=== PATIENT | male | born 2000 | race Caucasian/White ===

== ENCOUNTER 2018-03-27 22:22 | Emergency (ER) | payer MEDICAID ==
[2018-03-27 22:36] VITALS: BP 122/58
[2018-03-27] MEDS ORDERED: IBUPROFEN 800 MG TABLET PO ONE (23:53)
--- NOTE | 2018-03-28 00:01 | ER Document Report ---
ED Extremity Problem, Lower - General Mode of Arrival: Ambulatory Information source: Patient TRAVEL OUTSIDE OF THE [place] IN LAST 30 DAYS: No <BONI CULVER - Last Filed: 03/27/18 23:55> <YANNA TIDWELL - Last Filed: 03/28/18 00:25> - General Chief Complaint: Knee Pain Stated Complaint: KNEE PAIN Time Seen by Provider: 03/27/18 23:48 Notes: 17-year-old male who presents to the emergency department today with complaints of left knee pain. Patient states he tripped earlier today which is what caused this pain. Patient mentions that he is homeless. Patient states he was living with his sister in [place] but she kicked him out. (BONI CULVER) Past Medical History - General Information source: Patient - Social History Smoking Status: Never Smoker Cigarette use (# per day): No Lives with: Homeless - Medical History Medical History: Negative Surgical Hx: Negative <BONI CULVER - Last Filed: 03/27/18 23:55> - Social History Family History: Reviewed & Not Pertinent <YANNA TIDWELL - Last Filed: 03/28/18 00:25> Review of Systems - Review of Systems Constitutional: No symptoms reported EENT: No symptoms reported Cardiovascular: No symptoms reported Respiratory: No symptoms reported Gastrointestinal: No symptoms reported Genitourinary: No symptoms reported Male Genitourinary: No symptoms reported Musculoskeletal: See HPI, Joint pain - left knee pain Skin: No symptoms reported Hematologic/Lymphatic: No symptoms reported Neurological/Psychological: No symptoms reported -: Yes All other systems reviewed and negative <BONI CUVLER - Last Filed: 03/27/18 23:55> Physical Exam - Vital signs Interpretation: Normal - General General appearance: Appears well, Alert - HEENT Head: Normocephalic, Atraumatic Eyes: Normal Pupils: PERRL - Respiratory Respiratory status: No respiratory distress Chest status: Nontender Breath sounds: Normal Chest palpation: Normal - Cardiovascular Rhythm: Regular Heart sounds: Normal auscultation Murmur: No - Abdominal Inspection: Normal Distension: No distension Bowel sounds: Normal Tenderness: Nontender Organomegaly: No organomegaly - Back Back: Normal, Nontender - Extremities General upper extremity: Normal inspection, Nontender, Normal color, Normal ROM , Normal temperature General lower extremity: Normal inspection, Normal color, Normal temperature, Normal weight bearing. No: Lorrie's sign Hip: Normal Thigh: Normal Knee: Tender, Joint effusion - Mild, Pain with ROM - Pain with flexion. No: Deformity, Dislocation, Instability Calf: Normal Ankle: Normal Foot: Normal - Neurological Neuro grossly intact: Yes Cognition: Normal Orientation: AAOx4 Manito Coma Scale Eye Opening: Spontaneous Manito Coma Scale Verbal: Oriented Manito Coma Scale Motor: Obeys Commands Manito Coma Scale Total: 15 Speech: Normal Motor strength normal: LUE, RUE, LLE, RLE Sensory: Normal - Psychological Associated symptoms: Normal affect, Normal mood - Skin Skin Temperature: Warm Skin Moisture: Dry Skin Color: Normal <YANNA TIDWELL - Last Filed: 03/28/18 00:25> - Vital signs Vitals: Temp Pulse Resp BP Pulse Ox 98.6 F 81 18 122/58 L 98 03/27/18 22:33 03/27/18 22:03/27/18 22:03/27/18 22:33 03/27/18 22:33 Course <BONI CULVER - Last Filed: 03/27/18 23:55> - Diagnostic Test Radiology reviewed: Image reviewed <YANNA TIDWELL - Last Filed: 03/28/18 00:25> - Re-evaluation Re-evalutation: 03/28/18 00:22 Patient is a 17-year-old male who comes in complaining of knee pain. He apparently fell on his knee. Patient is currently homeless. No other injuries. No acute findings on x-ray. He will be given an Natanael wrap and is to follow-up with a doctor when he is able to do so. Social work consult has been placed to assess for needs. Stable for discharge (YANNA TIDWELL) - Vital Signs Vital signs: Temp Pulse Resp BP Pulse Ox 98.6 F 81 18 122/58 L 98 03/27/18 22:33 03/27/18 22:33 03/27/18 22:33 03/27/18 22:33 03/27/18 22:33 Discharge <BONI CULVER - Last Filed: 03/27/18 23:55> <YANNA TIDWELL - Last Filed: 03/28/18 00:25> - Discharge Clinical Impression: Left knee sprain Qualifiers: Encounter type: initial encounter Involved ligament of knee: unspecified ligament Qualified Code(s): S83.92XA - Sprain of unspecified site of left knee, initial encounter Condition: Stable Disposition: HOME, SELF-CARE Instructions: Sprained Knee ([facility]), Ice & Elevation ([facility]), Use of Crutches ([facility]) Scribe Attestation: 03/28/18 00:23 I personally performed the services described in the documentation, reviewed and edited the documentation which was dictated to the scribe in my presence, and it accurately records my words and actions. (YANNA TIDWELL) Scribe Documentation - Scribe Written by Dorie:: Dorie Paredes, 03/28/2018 0000 acting as scribe for :: Shirin <BONI CULVER - Last Filed: 03/27/18 23:55>
--- NOTE | 2018-03-28 00:23 | RADIOLOGY REPORT (SQ) ---
EXAM DESCRIPTION: XR KNEE 4 OR MORE VIEWS COMPLETED DATE/TME: 03/27/2018 23:53 CLINICAL HISTORY: 17 years, Male, fall, pain COMPARISON: None. NUMBER OF VIEWS: Three TECHNIQUE: Three views of the left knee were done LIMITATIONS: None. FINDINGS: There is no fracture or dislocation involving the left knee joint. There is no suprapatellar joint effusion. The joint spaces are well-maintained IMPRESSION: Negative for acute bony trauma involving the left knee 2010 [employer]- All Rights Reserved
== END 2018-03-28 00:56 | disposition home or self-care (01) ==
LOC: ER 22:22
DX: S83.92XA Sprain of unspecified site of left knee, initial encounter (principal); M25.562 Pain in left knee; W19.XXXA Unspecified fall, initial encounter; Z59.0 Homelessness
CPT/HCPCS: 99284; 73564; J3490

== ENCOUNTER 2018-03-28 08:55 | Emergency (ER) | payer MEDICAID ==
--- NOTE | 2018-03-28 09:57 | ER Document Report ---
ED Fall - General Chief Complaint: Fall Stated Complaint: FALL/RIB PAIN Time Seen by Provider: 03/28/18 09:56 Notes: The patient is a 17-year-old homeless male who presents after a trip and fall with right rib pain. Patient is immediately asking for food and is more interested in food and his rib pain. Denies shortness of breath, open wounds, head injury, abdominal pain or neck pain. TRAVEL OUTSIDE OF THE [place] IN LAST 30 DAYS: No - Related data Allergies/Adverse Reactions: No Known Allergies Allergy (Verified 03/28/18 08:57) Past Medical History - General Information source: Patient - Social History Smoking Status: Current Every Day Smoker Chew tobacco use (# tins/day): No Frequency of alcohol use: Rare Drug Abuse: None Family History: Reviewed & Not Pertinent Patient has suicidal ideation: No Patient has homicidal ideation: No Renal/ Medical History: Denies: Hx Peritoneal Dialysis Review of Systems - Review of Systems Notes: REVIEW OF SYSTEMS: CONSTITUTIONAL: -fevers, -chills EENT: -eye pain, -difficulty swallowing, -nasal congestion CARDIOVASCULAR: +right chest wall pain, -syncope. RESPIRATORY: -cough, -SOB GASTROINTESTINAL: -abdominal pain, -nausea, -vomiting, -diarrhea GENITOURINARY: -dysuria, -hematuria MUSCULOSKELETAL: -back pain, -neck pain SKIN: -rash or skin lesions. HEMATOLOGIC: -easy bruising or bleeding. LYMPHATIC: -swollen, enlarged glands. NEUROLOGICAL: -altered mental status or loss of consciousness, -headache, - neurologic symptoms PSYCHIATRIC: -anxiety, -depression. ALL OTHER SYSTEMS REVIEWED AND NEGATIVE. Physical Exam - Vital signs Vitals: Temp Pulse Resp BP Pulse Ox 98.3 F 63 16 122/76 99 03/28/18 09:16 03/28/18 09:16 03/28/18 09:16 03/28/18 09:16 03/28/18 09:16 - Notes Notes: PHYSICAL EXAMINATION: GENERAL: Well-appearing, well-nourished and in no acute distress. HEAD: Atraumatic, normocephalic. EYES: Pupils equal round and reactive to light, extraocular movements intact, sclera anicteric, conjunctiva are normal. ENT: nares patent, oropharynx clear without exudates. Moist mucous membranes. NECK: Normal range of motion, supple without lymphadenopathy LUNGS: Breath sounds clear to auscultation bilaterally and equal. No wheezes rales or rhonchi. HEART: Regular rate and rhythm without murmurs CHEST WALL: Mild tenderness over right lateral chest wall, no bruising or open wounds. ABDOMEN: Soft, nontender, normoactive bowel sounds. No guarding, no rebound. No masses appreciated. EXTREMITIES: Normal range of motion, no pitting or edema. No cyanosis. NEUROLOGICAL: Cranial nerves grossly intact. Normal speech, normal gait. Normal sensory and motor exams. PSYCH: Normal mood, normal affect. SKIN: Warm, Dry, normal turgor, no rashes or lesions noted. Course - Re-evaluation Re-evalutation: Patient is in no acute distress. Rib x-rays do not show any acute fractures or pneumothorax. Spoke to him about rib contusion management and possible small rib fracture that doesn't show on x-ray. He has no abdominal tenderness to suggest a liver injury. Given strict return precautions and he understands. - Vital Signs Vital signs: Temp Pulse Resp BP Pulse Ox 98.3 F 63 16 122/76 99 03/28/18 09:16 03/28/18 09:16 03/28/18 09:16 03/28/18 09:16 03/28/18 09:16 - Diagnostic Test Radiology reviewed: Image reviewed, Reports reviewed Radiology results interpreted by me: Right rib x-ray: NAD Discharge - Discharge Clinical Impression: Contusion of rib on right side Qualifiers: Encounter type: initial encounter Qualified Code(s): S20.211A - Contusion of right front wall of thorax, initial encounter Condition: Stable Disposition: HOME, SELF-CARE Additional Instructions: Rib Contusion You have been diagnosed as having bruised ribs. It will usually take a few weeks for these injured ribs to heal. You should cough or take a deep breath at least every hour or two to prevent lung complications. You should not engage in any strenuous physical activity until released by your physician. The usual rule is "if it hurts, don' t do it." Return if you develop any of the following: (1) Fever or chills. (2) Persistent cough, coughing up blood, or shortness of breath. (3) Increasing pain. (4) Weakness, lightheadedness, or fainting. Referrals: [facility] [Outside] - Follow up as needed
--- NOTE | 2018-03-28 10:17 | RADIOLOGY REPORT (SQ) ---
EXAM DESCRIPTION: RIBS RIGHT W/PA CHEST COMPLETED DATE/TIME: 03/28/2018 10:07 am REASON FOR STUDY: right rib injury COMPARISON: None. TECHNIQUE: Frontal view of the chest and additional views of the right ribs acquired. NUMBER OF VIEWS: Three view. LIMITATIONS: None. FINDINGS: FRONTAL CXR: No pneumothorax. No pleural effusion. No atelectasis or infiltrates. RIBS: No displaced rib fractures. No lytic or blastic bony lesions. OTHER: There is thoracic scoliosis with concavity toward the left. IMPRESSION: NO PNEUMOTHORAX. NO DISPLACED RIB FRACTURES. COMMENT: SITE OF TRAUMA/COMPLAINT MARKED/STAMP COMPLETED: NO. TECHNICAL DOCUMENTATION: JOB ID: [id number] [employer]- All Rights Reserved Reading location - IP/workstation name: [email or web address]
[2018-03-28 10:43] VITALS: BP 121/61
== END 2018-03-28 10:43 | disposition home or self-care (01) ==
LOC: ER 08:55
DX: S20.211A Contusion of right front wall of thorax, initial encounter (principal); R07.81 Pleurodynia; W01.0XXA Fall on same level from slipping, tripping and stumbling without subsequent striking against object, initial encounter; Z59.0 Homelessness; F17.200 Nicotine dependence, unspecified, uncomplicated
CPT/HCPCS: 99283

== ENCOUNTER 2018-03-28 13:40 | Emergency (ER) | payer MEDICAID ==
[2018-03-28 13:51] VITALS: BP 132/76
--- NOTE | 2018-03-28 14:21 | ER Document Report ---
HPI - HPI Patient complains to provider of: Toe pain Quality of pain: Achy Pain Level: 2 Context: Patient complains of bilateral fifth toe pain that he noticed this afternoon. Patient was just discharged from here earlier today but states that the toes were really bothering him at that time. Patient does acknowledge he has been doing a lot of walking as he is currently homeless. Patient denies any injury to the feet. Associated Symptoms: Other - Bilateral fifth toe pain Exacerbated by: Walking Similar symptoms previously: No Recently seen / treated by doctor: Yes - ROS ROS below otherwise negative: Yes Systems Reviewed and Negative: Yes All other systems reviewed and negative - CONSTITUTIONAL Constitutional: DENIES: Fever - MUSCULOSKELETAL Musculoskeletal: REPORTS: Extremity pain - DERM Skin Problems: Blister Past Medical History - General Information source: Patient - Social History Smoking Status: Current Every Day Smoker Smoking Education Provided: Yes Frequency of alcohol use: None Drug Abuse: None Occupation: None Lives with: Homeless Family History: Reviewed & Not Pertinent - Medical History Medical History: Negative Renal/ Medical History: Denies: Hx Peritoneal Dialysis Surgical Hx: Negative Vertical Provider Document - CONSTITUTIONAL Agree With Documented VS: Yes Exam Limitations: No Limitations General Appearance: WD/WN, No Apparent Distress - INFECTION CONTROL TRAVEL OUTSIDE OF THE [place] IN LAST 30 DAYS: No - HEENT HEENT: Atraumatic, Normocephalic - NECK Neck: Normal Inspection - RESPIRATORY Respiratory: No Respiratory Distress - CARDIOVASCULAR Pulses: Normal: Dorsalis pedis - MUSCULOSKELETAL/EXTREMETIES Musculoskeletal/Extremeties: MAEW, FROM - NEURO Level of Consciousness: Awake, Alert, Appropriate Motor/Sensory: No Motor Deficit - DERM Integumentary: Warm, Dry Notes: Patient with blisters to plantar surface of bilateral fifth toes Course - Re-evaluation Re-evalutation: 03/28/18 14:20 This is patient's third visit in 24 hours. Patient states that he just was not having as much pain during his last visit is why he did not mention that he has blisters to the feet. Patient is currently homeless and offered information on the [facility]. Patient declined stating he is going to need up with his friends. - Vital Signs Vital signs: Temp Pulse Resp BP Pulse Ox 98.6 F 80 16 132/76 H 98 03/28/18 13:49 03/28/18 13:49 03/28/18 13:49 03/28/18 13:49 03/28/18 13:49 Discharge - Discharge Clinical Impression: Blister of toe Qualifiers: Encounter type: initial encounter Laterality: unspecified laterality Qualified Code(s): S90.426A - Blister (nonthermal), unspecified lesser toe(s), initial encounter Condition: Stable Disposition: HOME, SELF-CARE Additional Instructions: Return immediately for any new or worsening symptoms Followup with your primary care provider, call tomorrow to make a followup appointment Wear shoes and prevent rubbing of the area when you have the blisters. Forms: Smoking Cessation Education Referrals: [facility] [Provider Group] - Follow up as needed
== END 2018-03-28 14:56 | disposition home or self-care (01) ==
LOC: ER 13:40
DX: S90.426A Blister (nonthermal), unspecified lesser toe(s), initial encounter (principal); M79.675 Pain in left toe(s); M79.674 Pain in right toe(s); F17.210 Nicotine dependence, cigarettes, uncomplicated; X58.XXXA Exposure to other specified factors, initial encounter; Z59.0 Homelessness
CPT/HCPCS: 99283